=== PATIENT | female | born 1965 | race Caucasian/White ===

== ENCOUNTER → 2021-08-29 | Outpatient (CLI) | payer OTHER ==
--- NOTE | 2021-08-29 18:18 | XR ---
EXAMINATION TYPE: XR Hip Complete LT, XR lumbar spine 2 or 3V DATE OF EXAM: 08/29/2021 COMPARISON: NONE HISTORY: 56 years Female. STUDY INDICATION GIVEN: S39.012A, S76.012A HIP AND BACK PAIN . TECHNIQUE: 2 views of the left hip joint. 3 views of the lumbar spine. IMPRESSION: Lumbar spine: Mild straightening of the lumbar curvature. Normal vertebral body heights. Mild narrowi ng of L4-5 and L5-S1. Mild bony neural foraminal narrowing at L5-S1. 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 5 nonrib-bearing type vertebral bodies are seen. Mild bilateral sacroiliac joint right greater than left sclerosis. Left hip joint: No acute osseous abnormalities. Formal left hip joint alignment. There may be mild na rrowing of the left hip joint space though evaluation is limited due to lack of contralateral side fo r comparison and prior's. No significant soft tissue abnormality seen.
== END | disposition home or self-care (01) ==
LOC: RADXRMAIN 16:40
PROVIDERS: ATTEND Emergency Medicine
DX: S39.012A Strain of muscle, fascia and tendon of lower back, initial encounter (principal); S76.012A Strain of muscle, fascia and tendon of left hip, initial encounter; M47.897 Other spondylosis, lumbosacral region; X58.XXXA Exposure to other specified factors, initial encounter
CPT/HCPCS: 72100; 73502